=== PATIENT | female | born 1970 | race Caucasian/White ===

== ENCOUNTER 2020-05-29 08:17 | Emergency (ER) | payer OTHER, SELFPAY ==
--- NOTE | 2020-05-29 08:19 | ED.GENADULT ---
HPI - General Adult General Chief complaint: Urogenital-Female Stated complaint: lower abdominal pain Time Seen by Provider: 05/29/20 08:47 Source: patient Mode of arrival: ambulatory Limitations: no limitations History of Present Illness HPI narrative: 49-year-old female presents to the [facility] with complaints of lower abdominal cramping, with intermittent urgency and frequency. Denies any pain with urination. Patient states she is been feeling a little achy and noticed yesterday she had a low-grade fever of 99-100. Patient states she is concerned that she might have a urinary tract infection. Denies any nausea, vomiting or diarrhea. Denies any low back pain. Denies chest pain or shortness of breath. Related Data Home Medications Medication Instructions Recorded Confirmed alendronate 70 mg PO WEEKLY 05/29/20 05/29/20 Allergies Allergy/AdvReac Type Severity Reaction Status Date / Time Sulfa (Sulfonamide Allergy Mild Unknown Verified 05/29/20 08:41 Antibiotics) erythromycin base Allergy Unknown Unknown Verified 05/29/20 08:41 Review of Systems Review of Systems: Narrative: CONSTITUTIONAL: Positive low-grade fever, denies chills, or sweats. EYES: Denies visual changes, redness, or discharge. ENT: Denies rhinorrhea, congestion, sore throat, or otalgia. CARDIOVASCULAR: Denies chest pain, palpitations, or edema. RESPIRATORY: Denies cough or dyspnea. GASTROINTESTINAL: Positive lower abdominal cramping, nausea, denies vomiting, or diarrhea. GENITOURINARY: Denies dysuria or hematuria. Positive intermittent urgency and frequency SKIN: Denies rash or itching. MUSCULOSKELETAL: Denies back pain, joint pain, or myalgia. NEUROLOGIC: Denies headache, numbness, or weakness. PSYCHIATRIC: Denies anxiety or depression. PMFSH Comments At the time of my signature I agree with nursing past medical history, surgical, social, and family history. There is no relevant family history pertinent to the presenting complaint. Exam Narrative: Exam Narrative: GENERAL: Well-appearing, well-nourished, and in no acute distress. HEAD: Normocephalic, atraumatic. EYES: PERRLA and EOMI. ENT: Nares clear, no rhinorrhea or epistaxis. Mucous membranes moist. NECK: Supple. No lymphadenopathy CHEST: Clear to auscultation. No respiratory distress. HEART: Regular rate and rhythm. No murmur heard. Normal peripheral pulses. ABDOMEN: Soft, nontender, nondistended, normal active bowel sounds. No CVA tenderness on percussion EXTREMITIES: Normal range of motion. No edema. SKIN: Warm, dry, no rash. NEURO: No focal deficits. Alert and oriented x3. Course Vital Signs Vital signs: Vital Signs Temperature 37.3 C 05/29/20 08:28 Pulse Rate 78 05/29/20 08:28 Respiratory Rate 16 05/29/20 08:28 Blood Pressure 121/75 05/29/20 08:28 Pulse Oximetry 100 05/29/20 08:28 Temperature 37.3 C 05/29/20 08:28 Pulse Rate 78 05/29/20 08:28 Respiratory Rate 16 05/29/20 08:28 Blood Pressure 121/75 05/29/20 08:28 Pulse Oximetry 100 05/29/20 08:28 Vital signs reviewed. Medical Decision Making Differential Diagnosis Differential Diagnosis: Differential diagnosis: Appendicitis, ovarian torsion, gallbladder disease, ovarian torsion, pancreatitis, lower lobe pneumonia,AAA, AMI or ACS, DKA, diverticulitis. Discussed with patient that her urine dip does show some nitrates which could be indicative of a urinary tract infection therefore we will go ahead and start her on an antibiotic today and send her urine off for culture to the lab. Discussed with her that she also has glucose and ketones present therefore would like to go ahead and check her blood sugar. Patient states she has no history of diabetes. Vital Signs Vital Signs: Vital Signs Temperature 37.3 C 05/29/20 08:28 Pulse Rate 78 05/29/20 08:28 Respiratory Rate 16 05/29/20 08:28 Blood Pressure 121/75 05/29/20 08:28 Pulse Oximetry 100 05/29/20 08:28 Temperatur
[2020-05-29 08:28] VITALS: BP 121/75; PULSE 78; RESP 16; TEMP 37.3; O2SAT 100
[2020-05-29 08:58] LABS: Glucose Point of Care 111 (65-105)
== END 2020-05-29 09:08 | disposition home or self-care (01) ==
PROVIDERS: Emergency Provider Nurse Practitioner Family; PCP Obstetrics & Gynecology
DX: N30.00 Acute cystitis without hematuria (principal); M81.0 Age-related osteoporosis without current pathological fracture
CPT/HCPCS: 81003; 87086; 99213; G0463